=== PATIENT | female | born 1975 | race Caucasian/White ===

== ENCOUNTER 2017-10-21 10:29 | Inpatient (IN) | payer OTHER ==
[~2017-10-21] VITALS: Ht 149.9 cm; Wt 91.9 kg
[2017-10-21 11:48] LABS: BASOPHIL % 0.7 % (0-2); PLATELET COUNT 232 x10^3mcL (130-400); RED CELL DISTRIBUTION WIDTH 13.5 % (11.5-14.5)
[2017-10-21 11:58] LABS: UA SPECIFIC GRAVITY 1.025 (1.005-1.035); microscopic required? YES; urine erythrocyte TRACE (NEGATIVE)
[2017-10-21 12:11] LABS: CALCIUM 8.7 mg/dL (8.5-10.1); CARBON DIOXIDE 21.4 mmol/L (21-32); CHLORIDE SERUM 104 mmol/L (98-107); CREATININE SERUM 0.6 mg/dL (0.6-1.0); GFR1 > 60 mL/min; GLUCOSE SERUM 115 mg/dL (74-106); SODIUM SERUM 135 mmol/L (136-145)
[2017-10-21 12:16] LABS: ALBUMIN 3.8 g/dL (3.4-5.0); ALKALINE PHOSPHATASE 58 U/L (46-116); ALT/SGPT 23 U/L (14-59); AST/SGOT 12 U/L (15-37); BILIRUBIN TOTAL 1.32 mg/dL (0.20-1.00); TOTAL PROTEIN, SERUM 7.4 g/dL (6.4-8.2)
[2017-10-21] MEDS ORDERED: METFORMIN HYD1000 M2 PO (12:42)
[2017-10-21] MEDS ORDERED: JANUVIA100 M1 PO (12:42)
[2017-10-21 13:19] VITALS: BP 128/63
[2017-10-21 13:22] LABS: AMPHETAMINE QUAL UR NONE DETECTED (See below)
[2017-10-21 13:22] LABS: CHOLESTEROL/HDL RATIO 3.1; MAGNESIUM 2.1 mg/dL (1.8-2.4); PHOSPHOROUS 3.8 mg/dL (2.5-4.9)
[2017-10-21 13:25] VITALS: Ht 149.9 cm; Wt 91.9 kg
[2017-10-21 13:39] LABS: T3 TOTAL 0.97 ng/mL
[2017-10-21 13:51] LABS: FREE T4 0.79 ng/dL (0.76-1.46); FREE THYROXINE INDEX 1.7 ug/dL (1.4-4.5); T4(THYROXINE) 6.1 ug/dL (4.7-13.3)
[2017-10-21 16:20] VITALS: BP 115/60
[2017-10-21 21:20] VITALS: BP 123/62
[2017-10-22 05:01] VITALS: BP 96/53
[2017-10-22 06:32] LABS: CALCIUM 8.2 mg/dL (8.5-10.1); CARBON DIOXIDE 23.3 mmol/L (21-32); CHLORIDE SERUM 106 mmol/L (98-107); CREATININE SERUM 0.6 mg/dL (0.6-1.0); GFR1 > 60 mL/min; GLUCOSE SERUM 132 mg/dL (74-106); MAGNESIUM 2.1 mg/dL (1.8-2.4); POTASSIUM SERUM 3.6 mmol/L (3.5-5.1); SODIUM SERUM 138 mmol/L (136-145)
[2017-10-22 06:33] LABS: BASOPHIL % 0.4 % (0-2); PLATELET COUNT 213 x10^3mcL (130-400); RED CELL DISTRIBUTION WIDTH 13.7 % (11.5-14.5)
[2017-10-22 09:25] VITALS: BP 116/57
[2017-10-22 16:56] VITALS: BP 105/61
[2017-10-22 20:41] VITALS: BP 108/53
[2017-10-23 05:32] VITALS: BP 117/66
[2017-10-23 06:03] LABS: BASOPHIL % 0.4 % (0-2); PLATELET COUNT 227 x10^3mcL (130-400); RED CELL DISTRIBUTION WIDTH 13.3 % (11.5-14.5)
[2017-10-23 06:33] LABS: CALCIUM 8.4 mg/dL (8.5-10.1); CARBON DIOXIDE 24.1 mmol/L (21-32); CHLORIDE SERUM 106 mmol/L (98-107); CREATININE SERUM 0.6 mg/dL (0.6-1.0); GFR1 > 60 mL/min; GLUCOSE SERUM 107 mg/dL (74-106); PHOSPHOROUS 4.2 mg/dL (2.5-4.9); POTASSIUM SERUM 4.2 mmol/L (3.5-5.1); SODIUM SERUM 138 mmol/L (136-145)
[2017-10-23 09:38] VITALS: BP 106/65
[2017-10-23] MEDS ORDERED: BIA500 PO (13:04)
[2017-10-23] MEDS ORDERED: LIPI10 PO (13:05)
[2017-10-23] MEDS ORDERED: ELA10 PO (13:07)
[2017-10-23] MEDS ORDERED: BG FS (13:07)
[2017-10-23] MEDS ORDERED: PEPL PO (13:13)
[2017-10-23] MEDS ORDERED: AMITIZA24 MC1 PO (13:14)
[2017-10-23] MEDS ORDERED: PROT40I PO (13:16)
[2017-10-23] MEDS ORDERED: LAC PO (13:16)
[2017-10-23] MEDS ORDERED: METFORMIN HCL1000 MG PO (13:17)
[2017-10-23] MEDS ORDERED: januvia PO (13:17)
[2017-10-23 13:42] VITALS: BP 106/65
== END 2017-10-23 16:26 | disposition home or self-care (01) | DRG 241 ==
LOC: ED 10:29 → MU 12:08
PROVIDERS: Emergency Medicine; Family Medicine; Internal Medicine Gastroenterology
PROC: 0DB68ZX Excision of Stomach, Via Natural or Artificial Opening Endoscopic, Diagnostic (ICD-10-PCS; principal; 2017-10-22 10:30)
PROC: 0DJD8ZZ Inspection of Lower Intestinal Tract, Via Natural or Artificial Opening Endoscopic (ICD-10-PCS; 2017-10-22 10:30)
DX: K29.70 Gastritis, unspecified, without bleeding (principal); A04.8 Other specified bacterial intestinal infections; E11.65 Type 2 diabetes mellitus with hyperglycemia; K76.0 Fatty (change of) liver, not elsewhere classified; E66.01 Morbid (severe) obesity due to excess calories; K57.30 Diverticulosis of large intestine without perforation or abscess without bleeding; E87.1 Hypo-osmolality and hyponatremia; Z68.41 Body mass index [BMI] 40.0-44.9, adult; K64.8 Other hemorrhoids; E78.5 Hyperlipidemia, unspecified; E80.6 Other disorders of bilirubin metabolism; I10 Essential (primary) hypertension; E02 Subclinical iodine-deficiency hypothyroidism; Z79.84 Long term (current) use of oral hypoglycemic drugs; Z88.0 Allergy status to penicillin; Z90.49 Acquired absence of other specified parts of digestive tract; Z88.1 Allergy status to other antibiotic agents; Z91.040 Latex allergy status; Z90.710 Acquired absence of both cervix and uterus
CPT/HCPCS: 43235; 45378; 84439; 87338; C9113; J1200; J1610; J2250; J2310; J2405; J2765; J3010; J3490; J7030; J7042; Q0092

== ENCOUNTER 2018-01-12 08:19 | Emergency (ER) | payer OTHER ==
[~2018-01-12] VITALS: Ht 160 cm; Wt 93.0 kg
[~2018-01-12 08:19] MED LIST: AMITIZA24 MC1 PO; BG FS; BIA500 PO; ELA10 PO; JANUVIA100 M1 PO; LAC PO; LIPI10 PO; METFORMIN HCL1000 MG PO; METFORMIN HYD1000 M2 PO; PEPL PO; PROT40I PO; januvia PO
[2018-01-12 08:29] VITALS: Ht 160 cm; Wt 93.0 kg
[2018-01-12 09:32] VITALS: BP 143/89
== END 2018-01-12 09:32 | disposition home or self-care (01) ==
LOC: ED 08:19
DX: S29.012A Strain of muscle and tendon of back wall of thorax, initial encounter (principal); E11.9 Type 2 diabetes mellitus without complications; Z90.89 Acquired absence of other organs; Z90.711 Acquired absence of uterus with remaining cervical stump; Z88.0 Allergy status to penicillin; Z88.6 Allergy status to analgesic agent; Z88.1 Allergy status to other antibiotic agents; Z91.040 Latex allergy status; X58.XXXA Exposure to other specified factors, initial encounter; Y93.89 Activity, other specified; Y92.89 Other specified places as the place of occurrence of the external cause; Y99.8 Other external cause status
CPT/HCPCS: Q0092

== ENCOUNTER 2018-04-02 19:09 | Emergency (ER) | payer OTHER ==
[~2018-04-02] VITALS: Ht 149.9 cm; Wt 94.8 kg
[2018-04-02 19:48] VITALS: Ht 149.9 cm; Wt 94.8 kg
[2018-04-02 21:26] VITALS: BP 140/98
== END 2018-04-02 21:21 | disposition home or self-care (01) ==
LOC: ED 19:09
DX: M54.6 Pain in thoracic spine (principal); R51 Headache; E11.9 Type 2 diabetes mellitus without complications; Z88.0 Allergy status to penicillin; Z88.6 Allergy status to analgesic agent; Z88.1 Allergy status to other antibiotic agents; Z91.040 Latex allergy status; Z90.89 Acquired absence of other organs; Z90.712 Acquired absence of cervix with remaining uterus; V49.09XA Driver injured in collision with other motor vehicles in nontraffic accident, initial encounter; Y93.I9 Activity, other involving external motion; Y92.413 State road as the place of occurrence of the external cause; Y99.8 Other external cause status

== ENCOUNTER 2018-04-08 13:30 | Emergency (ER) | payer OTHER ==
[~2018-04-08] VITALS: Ht 149.9 cm; Wt 94.8 kg
[2018-04-08 13:31] VITALS: Ht 149.9 cm; Wt 94.8 kg
[2018-04-08 15:03] LABS: BASOPHIL % 0.4 % (0-2); PLATELET COUNT 276 x10^3mcL (130-400); RED CELL DISTRIBUTION WIDTH 13.1 % (11.5-14.5)
[2018-04-08 15:20] LABS: CALCIUM 8.5 mg/dL (8.5-10.1); CARBON DIOXIDE 25.3 mmol/L (21-32); CHLORIDE SERUM 102 mmol/L (98-107); CREATININE SERUM 0.6 mg/dL (0.6-1.0); GFR1 > 60 mL/min; GLUCOSE SERUM 175 mg/dL (74-106); POTASSIUM SERUM 3.5 mmol/L (3.5-5.1); SODIUM SERUM 137 mmol/L (136-145)
[2018-04-08 15:28] LABS: ALBUMIN 3.9 g/dL (3.4-5.0); ALKALINE PHOSPHATASE 60 U/L (46-116); ALT/SGPT 27 U/L (14-59); AST/SGOT 17 U/L (15-37); BILIRUBIN TOTAL 0.7 mg/dL (0.20-1.00); LIPASE 187 IU/L (73-393); TOTAL PROTEIN, SERUM 7.5 g/dL (6.4-8.2)
[2018-04-08 16:33] VITALS: BP 128/80
== END 2018-04-08 16:33 | disposition home or self-care (01) ==
LOC: ED 13:30
PROVIDERS: Emergency Medicine
DX: R07.89 Other chest pain (principal); R06.02 Shortness of breath; Z88.0 Allergy status to penicillin; Z88.6 Allergy status to analgesic agent; Z88.1 Allergy status to other antibiotic agents; E11.9 Type 2 diabetes mellitus without complications; Z90.89 Acquired absence of other organs; F41.9 Anxiety disorder, unspecified; V49.88XA Car occupant (driver) (passenger) injured in other specified transport accidents, initial encounter; Y93.I9 Activity, other involving external motion; Y92.413 State road as the place of occurrence of the external cause; Y99.8 Other external cause status
CPT/HCPCS: 36415; 82962

== ENCOUNTER 2018-05-22 07:32 | Day surgery (SDC) | payer OTHER | END 2018-05-22 11:55 | disposition home or self-care (01) | LOC: DS 07:32 → GI 09:30 → OR 09:30 → GI 09:30 → DS 11:55 → GI 09:00 ==

== ENCOUNTER 2018-08-18 12:32 | Emergency (ER) | payer OTHER ==
[~2018-08-18] VITALS: Ht 149.9 cm; Wt 95.3 kg
[2018-08-18 12:41] VITALS: Ht 149.9 cm; Wt 95.3 kg
[2018-08-18 13:59] LABS: BASOPHIL % 0.5 % (0-2); PLATELET COUNT 241 x10^3mcL (130-400); RED CELL DISTRIBUTION WIDTH 13.4 % (11.5-14.5)
[2018-08-18 14:16] LABS: CALCIUM 8.9 mg/dL (8.5-10.1); CARBON DIOXIDE 27.1 mmol/L (21-32); CHLORIDE SERUM 104 mmol/L (98-107); CREATININE SERUM 0.7 mg/dL (0.6-1.0); GFR1 > 60 mL/min; GLUCOSE SERUM 241 mg/dL (74-106); POTASSIUM SERUM 3.9 mmol/L (3.5-5.1); SODIUM SERUM 141 mmol/L (136-145)
[2018-08-18 14:20] LABS: ALBUMIN 3.8 g/dL (3.4-5.0); ALKALINE PHOSPHATASE 56 U/L (46-116); ALT/SGPT 43 U/L (14-59); BILIRUBIN TOTAL 1.4 mg/dL (0.20-1.00); LIPASE 167 IU/L (73-393); TOTAL PROTEIN, SERUM 7.2 g/dL (6.4-8.2)
[2018-08-18 14:40] LABS: AST/SGOT 32 U/L (15-37)
[2018-08-18 16:07] VITALS: BP 136/79
== END 2018-08-18 16:07 | disposition home or self-care (01) ==
LOC: ED 12:32
PROVIDERS: Emergency Medicine
DX: K57.90 Diverticulosis of intestine, part unspecified, without perforation or abscess without bleeding (principal); E11.9 Type 2 diabetes mellitus without complications; F41.9 Anxiety disorder, unspecified; Z90.49 Acquired absence of other specified parts of digestive tract; Z90.710 Acquired absence of both cervix and uterus; Z98.890 Other specified postprocedural states; Z88.0 Allergy status to penicillin; Z88.6 Allergy status to analgesic agent; Z88.1 Allergy status to other antibiotic agents; Z91.040 Latex allergy status; Z88.8 Allergy status to other drugs, medicaments and biological substances
CPT/HCPCS: J2270; J2405; J7030